=== PATIENT | female | born 1985 | race Asian ===

== ENCOUNTER 2018-06-19 09:44 | Emergency (ER) | payer BC, OTHER ==
[~2018-06-19] VITALS: Ht 160 cm; Wt 57.9 kg
[~2018-06-19 09:44] MED LIST: IBUP-1222 PO; PRENATAL VITAMINS
--- NOTE | 2018-06-19 10:47 | NUR ---
PT C/O ABD PAIN AND VB SINCE 7 AM TODAY. PT IS 14 WEEKS . PT DENIES PASSING ANY CLOTS OR TISSUE. PT PLACED NI GOWN AND GIVEN WARM BLANKETS.
--- NOTE | 2018-06-19 11:20 | NUR ---
PT IN [place].
--- NOTE | 2018-06-19 11:49 | NUR ---
DR. BESS AWARE OF BP. WATER GIVEN TO PT.
--- NOTE | 2018-06-19 12:28 | NUR ---
THIS RN PERFORMED STRAIGHT CAT ON PT FOLLOWING POLICY AND EBP. PT TOLERATED WELL. PT VERBALLY AGREED TO LET THIS MALE RN ATTEMPT. THIS RN HAD A FEMAL [employer] AUGUSTINE EMT AT BEDSIDE DURING PROCEDURE.
[2018-06-19 13:00] LABS: MICROSCOPIC AUTO
[2018-06-19 13:02] LABS: CULTURE INDICATED? NO
--- NOTE | 2018-06-19 13:10 | NUR ---
CHART UP FOR MD RECHECK. PT AWARE.
[2018-06-19 14:36] VITALS: BP 121/76
== END 2018-06-19 14:38 | disposition home or self-care (01) ==
LOC: ED 12:05
DX: O20.0 Threatened abortion (principal); Z3A.12 12 weeks gestation of pregnancy
CPT/HCPCS: 36415; 76801; 81001; 84702; 86901; 99284

== ENCOUNTER 2019-11-28 12:06 | Outpatient (CLI) | payer BC ==
[~2019-11-28 12:06] MED LIST changes: +DOCU-131 PO; +LIDOCAINE 1%, 10ML ONE; +OXYC-302 PO
== END 2019-11-28 23:59 | disposition home or self-care (01) ==
LOC: RAD 12:06
PROVIDERS: ATTEND Internal Medicine
DX: E04.1 Nontoxic single thyroid nodule (principal); Z79.899 Other long term (current) drug therapy
CPT/HCPCS: 10005; 88173; J3490